=== PATIENT | female | born 1935 | race Caucasian/White ===

== ENCOUNTER 2017-06-08 16:42 | Inpatient (IN) | payer MEDICARE, OTHER ==
[2017-06-08 17:17] LABS: CHLORIDE,CL 96 mEq/L (98-106); SODIUM,NA 137 mEq/L (136-145)
[2017-06-08] MEDS ORDERED: Magnesium Hydroxide 400 MG/5 ML Susp 30 ML Cup PO PRN (17:38)
[2017-06-08] MEDS ORDERED: Acetaminophen 325 MG Tab PO PRN (17:38)
[2017-06-08] MEDS ORDERED: Ondansetron 4 MG/2 ML SDV IV PRN (17:38)
[2017-06-08] MEDS ORDERED: methylPREDNISolone Sodium Succinate 125 MG/2 ML SDV IVPUSH SCH (17:45)
[2017-06-08] MEDS ORDERED: Azithromycin 500 MG in Sodium Chloride 0.9% 250 ML IV SCH (18:00)
[2017-06-08] MEDS ORDERED: Iopamidol 755 Mg/ML 100 ML Bottle IVPUSH ONE ×2 (18:23→18:26)
[2017-06-08] MEDS ORDERED: cefTRIAXone 1 GM Vial IVPUSH SCH (19:00)
[2017-06-08] MEDS: Lactated Ringers 1,000 ML IV SCH (19:18)
[2017-06-08] MEDS: Enoxaparin 30 MG/0.3 ML Syringe SUBCUT SCH (19:19)
[2017-06-08] MEDS: Albuterol/Ipratropium 3.0-0.5 MG/3 ML Neb Soln NEB SCH (19:20)
[2017-06-08] MEDS: Cholecalciferol (Vitamin D3) 1,000 Unit Tab PO SCH (19:43)
[2017-06-08] MEDS: Simvastatin 10 MG Tab PO SCH (19:43)
[2017-06-08] MEDS: Calcium Carbonate 500 MG Tab.Chew PO SCH (19:43)
[2017-06-08] MEDS: Multivitamin Tab PO SCH (19:43)
[2017-06-08] MEDS: Aspirin 81 MG Tab.EC PO SCH (19:43)
[2017-06-09] MEDS: Levothyroxine 150 MCG Tab PO SCH (06:28)
[2017-06-09] MEDS: Albuterol/Ipratropium 3.0-0.5 MG/3 ML Neb Soln NEB SCH ×4 (07:31→20:03)
[2017-06-09] MEDS: methylPREDNISolone Sodium Succinate 125 MG/2 ML SDV IVPUSH SCH (08:02)
--- NOTE | 2017-06-09 08:57 | PCM.PN ---
- General Info Date of Service: 06/09/17 Admission Dx/Problem (Free Text): RLL Pneumonia Subjective Update: Patient was admitted to the hospital from the clinic yesterday for RLL Pneumonia. She had reported weakness and extreme fatigue for the past 2 weeks. She also had a nonproductive cough. CXR and CTA of chest showed RLL opacities. Her WBC at admission was 16.6. WBC has decreased and is normal today at 9.8. Her CRP is also elevated at 14.8. Patient reports she feels a little better today. Continues to have a cough and some weakness. She did have a low grade temperature yesterday evening, but has been afebrile through the night and this morning. She does report some chills and continued shortness of breath on exertion. Functional Status: Reports: Pain Controlled, Tolerating Diet, Ambulating, Urinating. Denies: New Symptoms - Review of Systems General: Reports: Weakness, Fatigue, Chills. Denies: Fever, Appetite HEENT: Reports: No Symptoms. Denies: Sinus Congestion Pulmonary: Reports: Shortness of Breath, Pleuritic Chest Pain, Cough. Denies: Sputum, Hemoptysis Cardiovascular: Reports: Dyspnea on Exertion. Denies: Chest Pain, Palpitations , Edema, Lightheadedness Gastrointestinal: Reports: No Symptoms Genitourinary: Reports: No Symptoms Neurological: Reports: No Symptoms Psychiatric: Reports: No Symptoms - Patient Data Vitals - Most Recent: Last Vital Signs Temp 97.7 F 06/09/17 07:15 Pulse 66 06/09/17 07:15 Resp 16 06/09/17 07:15 BP 125/53 L 06/09/17 07:15 Pulse Ox 94 L 06/09/17 07:15 Weight - Most Recent: 83 lb 9.6 oz Lab Results Last 24 Hours: Laboratory Results - last 24 hr 06/08/17 06/08/17 06/08/17 Range/Units 16:58 16:58 16:58 WBC 16.6 H (5.0-10.0) 10^3/uL RBC 3.87 L (4.00-5.50) 10^6/uL Hgb 11.8 L (12.0-16.0) g/dL Hct 35.8 L (37.0-47.0) % MCV 92.5 (82.0-94.0) fL MCH 30.5 (27.0-32.0) pg MCHC 33.0 (33.0-38.0) g/dL RDW Coeff of Gregor 12.2 (11.0-15.0) % Plt Count 401 H (150-400) 10^3/uL Neut % (Auto) 89.5 H (35-85) % Lymph % (Auto) 6.0 L (10-55) % [place] % (Auto) 4.2 (0-16) % Eos % (Auto) 0.2 (0-5) % Baso % (Auto) 0.1 (0-3) % Neut # (Auto) 14.81 H (1.80-7.00) 10^3/uL Lymph # (Auto) 0.99 L (1.00-4.80) 10^3/uL [place] # (Auto) 0.69 (0.00-0.80) 10^3/uL Eos # (Auto) 0.04 (0.00-0.45) 10^3/uL Baso # (Auto) 0.02 10^3/uL D-Dimer, Quantitative 0.88 H (0.00-0.50) Sodium 137 (136-145) mEq/L Potassium 3.7 (3.5-5.0) mEq/L Chloride 96 L (98-106) mEq/L Carbon Dioxide 32 (21-32) mmol/L BUN 11 (7-18) mg/dL Creatinine 0.9 (0.6-1.0) mg/dL Est Cr Clr Drug Dosing TNP Estimated GFR (MDRD) > 60 (>=60) mL/min Glucose 96 (75-99) mg/dL Calcium 8.9 (8.4-10.1) mg/dL Magnesium (1.8-2.4) mg/dL Total Bilirubin 0.5 (0.0-1.0) mg/dL AST 22 (15-37) U/L ALT 22 (12-78) U/L Alkaline Phosphatase 97 (46-116) U/L C-Reactive Protein 14.9 H (0.2-0.8) mg/dL Total Protein 7.7 (6.4-8.2) g/dL Albumin 2.7 L (3.4-5.0) g/dL TSH, Ultra Sensitive (0.36-5.60) uIU/mL 06/09/17 06/09/17 Range/Units 07:00 07:00 WBC 9.8 (5.0-10.0) 10^3/uL RBC 3.62 L (4.00-5.50) 10^6/uL Hgb 11.1 L (12.0-16.0) g/dL Hct 33.5 L (37.0-47.0) % MCV 92.5 (82.0-94.0) fL MCH 30.7 (27.0-32.0) pg MCHC 33.1 (33.0-38.0) g/dL RDW Coeff of Gregor 12.2 (11.0-15.0) % Plt Count 359 (150-400) 10^3/uL Neut % (Auto) 92.9 H (35-85) % Lymph % (Auto) 6.3 L (10-55) % [place] % (Auto) 0.8 (0-16) % Eos % (Auto) 0 (0-5) % Baso % (Auto) 0 (0-3) % Neut # (Auto) 9.10 H (1.80-7.00) 10^3/uL Lymph # (Auto) 0.62 L (1.00-4.80) 10^3/uL [place] # (Auto) 0.08 (0.00-0.80) 10^3/uL Eos # (Auto) 0.00 (0.00-0.45) 10^3/uL Baso # (Auto) 0.00 10^3/uL D-Dimer, Quantitative (0.00-0.50) Sodium (136-145) mEq/L Potassium (3.5-5.0) mEq/L Chloride (98-106) mEq/L Carbon Dioxide (21-32) mmol/L BUN (7-18) mg/dL Creatinine (0.6-1.0) mg/dL Est Cr Clr Drug Dosing Estimated GFR (MDRD) (>=60) mL/min Glucose (75-99) mg/dL Calcium (8.4-10.1) mg/dL Magnesium 2.2 (1.8-2.4) mg/dL Total Bilirubin (0.0-1.0) mg/dL AST (15-37) U/L ALT (12-78) U/L Alkaline Phosphatase (46-116) U/L C-Reactive Protein 14.8 H (0.2-0.8) mg/dL Total Protein (6.4-8.2) g/dL Albumin (3.4-5.0) g/dL TSH, Ultra Sensitive 3.47 (0.36-5.60) uIU/mL Med Orders - Current: Current Medications Acetaminophen (Tylenol) 650 mg PO Q4H PRN PRN Reason: Pain (Mild 1-3)/fever Last Admin: 06/08/17 19:20 Dose: 650 mg Albuterol/Ipratropium (Duoneb 3.0-0.5 Mg/3 Ml) 3 ml NEB QIDRT [facility] Last Admin: 06/09/17 07:31 Dose: 3 ml Aspirin (Halfprin) 81 mg PO BEDTIME [facility] Last Admin: 06/08/17 19:43 Dose: 81 mg Calcium Carbonate/Glycine (Tums) 500 mg PO BEDTIME [facility] Last Admin: 06/08/17 19:43 Dose: 500 mg Ceftriaxone Sodium (Rocephin) 1 gm IVPUSH Q24H [facility] Cholecalciferol (Vitamin D3) 2,000 units PO BEDTIME [facility] Last Admin: 06/08/17 19:43 Dose: 2,000 units Enoxaparin Sodium (Lovenox) 30 mg SUBCUT Q24H [facility] Last Admin: 06/08/17 19:19 Dose: 30 mg Lactated Ringer's (Ringers, Lactated) 1,000 mls @ 75 mls/hr IV ASDIRECTED [facility] Last Admin: 06/08/17 19:18 Dose: 75 mls/hr Azithromycin 500 mg/ Sodium (Chloride) 250 mls @ 250 mls/hr IV Q24H [facility] Levothyroxine Sodium (Levothyroxine) 75 mcg PO ACBREAKFAST [facility] Last Admin: 06/09/17 06:28 Dose: 75 mcg Magnesium Hydroxide (Milk Of Magnesia) 30 ml PO Q12H PRN PRN Reason: Constipation Methylprednisolone Sodium Succinate (Solu-Medrol) 62.5 mg IVPUSH Q24H [facility] Last Admin: 06/09/17 08:02 Dose: 62.5 mg Multivitamins/Minerals/Vitamin C (Tab-A-Jama) 1 tab PO BEDTIME [facility] Last Admin: 06/08/17 19:43 Dose: 1 tab Ondansetron HCl (Zofran) 4 mg IV Q6H PRN PRN Reason: Nausea/Vomiting Simvastatin (Zocor) 10 mg PO BEDTIME [facility] Last Admin: 06/08/17 19:43 Dose: 10 mg Temazepam (Restoril) 15 mg PO BEDTIME PRN PRN Reason: Sleep Discontinued Medications Ceftriaxone Sodium (Rocephin) 1 gm IVPUSH Q24H [facility] Last Admin: 06/08/17 19:18 Dose: 1 gm Azithromycin 500 mg/ Sodium (Chloride) 250 mls @ 250 mls/hr IV Q24H [facility] Last Admin: 06/08/17 19:19 Dose: 250 mls/hr Iopamidol (Isovue-370 (76%)) 100 ml IVPUSH ONETIME ONE Stop: 06/08/17 18:24 Last Admin: 06/08/17 18:52 Dose: 100 ml Iopamidol (Isovue-370 (76%)) 100 ml IVPUSH ONETIME ONE Stop: 06/08/17 18:27 Last Admin: 06/08/17 22:55 Dose: Not Given Methylprednisolone Sodium Succinate (Solu-Medrol) 62.5 mg IVPUSH Q24H [facility] Last Admin: 06/08/17 19:18 Dose: 62.5 mg - Exam General: Alert, Oriented Neck: Supple Lungs: Clear to Auscultation, Decreased Breath Sounds Cardiovascular: Regular Rate, Regular Rhythm Extremities: Normal Inspection, Normal Range of Motion, Non-Tender, No Pedal Edema, Normal Capillary Refill Neurological: No New Focal Deficit Psy/Mental Status: Alert, Normal Affect, Normal Mood - Problem List & Annotations (1) Pneumonia of lower lobe of lung SNOMED Code(s): 487827678 Code(s): J18.1 - LOBAR PNEUMONIA, UNSPECIFIED ORGANISM Status: Acute Current Visit: Yes Qualifiers: Pneumonia type: due to unspecified organism Laterality: right Qualified Code(s): J18.1 - Lobar pneumonia, unspecified organism - Problem List Review Problem List Initiated/Reviewed/Updated: Yes - My Orders Last 24 Hours: My Active Orders 06/12/17 06:00 C-REACTIVE PROTEIN [CHEM] DAILY CBC WITH AUTO DIFF [HEME] DAILY 06/13/17 06:00 C-REACTIVE PROTEIN [CHEM] DAILY CBC WITH AUTO DIFF [HEME] DAILY 06/08/17 17:38 Patient Status [ADT] Routine Oxygen Therapy [RC] .PRN Up With Assistance [RC] .PRN Vital Signs [RC] 0000,0400,0800,1200,1599,1999 Acetaminophen [Tylenol] 650 mg PO Q4H PRN Magnesium Hydroxide [Milk of Magnesia] 30 ml PO Q12H PRN Ondansetron [Zofran] 4 mg IV Q6H PRN Temazepam [Restoril] 15 mg PO BEDTIME PRN Resuscitation Status Routine 06/08/17 17:39 Cardiac Monitoring [RC] 08,199906/08/17 17:41 RT Aerosol Therapy [RC] 0800,1200,1599,199906/08/17 17:45 Lactated Ringers [Ringers, Lactated] 1,000 ml IV ASDIRECTED 06/08/17 17:46 CULTURE SPUTUM + SMEAR [RM] Routine 06/08/17 17:54 CTA Chest W WO Contrast [Ang Chest] [CT] Stat 06/08/17 20:00 Albuterol/Ipratropium [DuoNeb 3.0-0.5 MG/3 ML] 3 ml NEB QIDRT Aspirin [Halfprin] 81 mg PO BEDTIME Calcium Carbonate [Tums] 500 mg PO BEDTIME Cholecalciferol (Vitamin D3) [Vitamin D3] 2,000 units PO BEDTIME Enoxaparin [Lovenox] 30 mg SUBCUT Q24H Multivitamins [Tab-A-Jama] 1 tab PO BEDTIME Simvastatin [Zocor] 10 mg PO BEDTIME 06/08/17 Dinner Regular Diet [DIET] 06/09/17 07:00 Levothyroxine 75 mcg PO ACBREAKFAST 06/09/17 08:00 methylPREDNISolone Sod Succ [Solu-MEDROL] 62.5 mg IVPUSH Q24H 06/09/17 20:00 Azithromycin [Zithromax] 500 mg Sodium Chloride 0.9% [Normal Saline] 250 ml IV Q24H cefTRIAXone [Rocephin] 1 gm IVPUSH Q24H 06/10/17 06:00 C-REACTIVE PROTEIN [CHEM] DAILY CBC WITH AUTO DIFF [HEME] DAILY 06/11/17 06:00 C-REACTIVE PROTEIN [CHEM] DAILY CBC WITH AUTO DIFF [HEME] DAILY - Plan Plan:: Continue IV antibiotics, steroids, and nebulizer treatments. WBC improving. Daily labs.
[2017-06-09] MEDS: Lactated Ringers 1,000 ML IV SCH (09:39)
[2017-06-09] MEDS: Calcium Carbonate 500 MG Tab.Chew PO SCH (20:03)
[2017-06-09] MEDS: cefTRIAXone 1 GM Vial IVPUSH SCH (20:03)
[2017-06-09] MEDS: Enoxaparin 30 MG/0.3 ML Syringe SUBCUT SCH (20:03)
[2017-06-09] MEDS: Aspirin 81 MG Tab.EC PO SCH (20:04)
[2017-06-09] MEDS: Cholecalciferol (Vitamin D3) 1,000 Unit Tab PO SCH (20:04)
[2017-06-09] MEDS: Multivitamin Tab PO SCH (20:04)
[2017-06-09] MEDS: Simvastatin 10 MG Tab PO SCH (20:04)
[2017-06-09] MEDS: Azithromycin 500 MG in Sodium Chloride 0.9% 250 ML IV SCH (20:06)
[2017-06-10] MEDS: Lactated Ringers 1,000 ML IV SCH ×2 (00:02→13:55)
[2017-06-10] MEDS: Temazepam 15 MG Cap PO PRN ×2 (01:34→19:41)
[2017-06-10] MEDS: Levothyroxine 150 MCG Tab PO SCH (06:15)
[2017-06-10] MEDS: methylPREDNISolone Sodium Succinate 125 MG/2 ML SDV IVPUSH SCH (07:45)
[2017-06-10] MEDS: Albuterol/Ipratropium 3.0-0.5 MG/3 ML Neb Soln NEB SCH ×4 (07:45→19:40)
--- NOTE | 2017-06-10 13:32 | PCM.PN ---
- General Info Date of Service: 06/10/17 Admission Dx/Problem (Free Text): RLL Pneumonia Subjective Update: Cleo reports she is feeling better today. She does report a continued nonproductive cough and fatigue, but reports they are both improving. Functional Status: Reports: Pain Controlled, Tolerating Diet, Ambulating, Urinating. Denies: New Symptoms - Review of Systems General: Reports: Fatigue. Denies: Fever, Weakness HEENT: Reports: No Symptoms Pulmonary: Reports: Shortness of Breath, Cough. Denies: Pleuritic Chest Pain, Sputum, Hemoptysis, Wheezing Cardiovascular: Reports: Dyspnea on Exertion. Denies: Chest Pain, Lightheadedness Gastrointestinal: Reports: No Symptoms Genitourinary: Reports: No Symptoms Neurological: Reports: No Symptoms Psychiatric: Reports: No Symptoms - Patient Data Vitals - Most Recent: Last Vital Signs Temp 98.3 F 06/10/17 07:54 Pulse 69 06/10/17 07:54 Resp 20 06/10/17 07:54 BP 128/69 06/10/17 07:54 Pulse Ox 95 06/10/17 07:54 Weight - Most Recent: 83 lb 9.6 oz I&O - Last 24 Hours: Intake & Output 06/09/17 06/10/17 06/10/17 22:59 06:59 14:59 Intake Total 1000 400 Balance 1000 400 Lab Results Last 24 Hours: Laboratory Results - last 24 hr 06/10/17 06/10/17 Range/Units 06:50 06:50 WBC 12.4 H (5.0-10.0) 10^3/uL RBC 3.18 L (4.00-5.50) 10^6/uL Hgb 9.7 L (12.0-16.0) g/dL Hct 30.1 L (37.0-47.0) % MCV 94.7 H (82.0-94.0) fL MCH 30.5 (27.0-32.0) pg MCHC 32.2 L (33.0-38.0) g/dL RDW Coeff of Gregor 12.2 (11.0-15.0) % Plt Count 316 (150-400) 10^3/uL Neut % (Auto) 88.3 H (35-85) % Lymph % (Auto) 6.7 L (10-55) % [place] % (Auto) 4.9 (0-16) % Eos % (Auto) 0 (0-5) % Baso % (Auto) 0.1 (0-3) % Neut # (Auto) 10.97 H (1.80-7.00) 10^3/uL Lymph # (Auto) 0.83 L (1.00-4.80) 10^3/uL [place] # (Auto) 0.61 (0.00-0.80) 10^3/uL Eos # (Auto) 0.00 (0.00-0.45) 10^3/uL Baso # (Auto) 0.01 10^3/uL C-Reactive Protein 7.5 H (0.2-0.8) mg/dL Med Orders - Current: Current Medications Acetaminophen (Tylenol) 650 mg PO Q4H PRN PRN Reason: Pain (Mild 1-3)/fever Last Admin: 06/08/17 19:20 Dose: 650 mg Albuterol/Ipratropium (Duoneb 3.0-0.5 Mg/3 Ml) 3 ml NEB QIDRT [facility] Last Admin: 06/10/17 12:27 Dose: 3 ml Aspirin (Halfprin) 81 mg PO BEDTIME [facility] Last Admin: 06/09/17 20:04 Dose: 81 mg Calcium Carbonate/Glycine (Tums) 500 mg PO BEDTIME [facility] Last Admin: 06/09/17 20:03 Dose: 500 mg Ceftriaxone Sodium (Rocephin) 1 gm IVPUSH Q24H [facility] Last Admin: 06/09/17 20:03 Dose: 1 gm Cholecalciferol (Vitamin D3) 2,000 units PO BEDTIME [facility] Last Admin: 06/09/17 20:04 Dose: 2,000 units Enoxaparin Sodium (Lovenox) 30 mg SUBCUT Q24H [facility] Last Admin: 06/09/17 20:03 Dose: 30 mg Lactated Ringer's (Ringers, Lactated) 1,000 mls @ 75 mls/hr IV ASDIRECTED [facility] Last Admin: 06/10/17 00:02 Dose: 75 mls/hr Azithromycin 500 mg/ Sodium (Chloride) 250 mls @ 250 mls/hr IV Q24H [facility] Last Admin: 06/09/17 20:06 Dose: 250 mls/hr Levothyroxine Sodium (Levothyroxine) 75 mcg PO ACBREAKFAST [facility] Last Admin: 06/10/17 06:15 Dose: 75 mcg Magnesium Hydroxide (Milk Of Magnesia) 30 ml PO Q12H PRN PRN Reason: Constipation Last Admin: 06/09/17 11:17 Dose: 30 ml Methylprednisolone Sodium Succinate (Solu-Medrol) 62.5 mg IVPUSH Q24H [facility] Last Admin: 06/10/17 07:45 Dose: 62.5 mg Multivitamins/Minerals/Vitamin C (Tab-A-Jama) 1 tab PO BEDTIME [facility] Last Admin: 06/09/17 20:04 Dose: 1 tab Ondansetron HCl (Zofran) 4 mg IV Q6H PRN PRN Reason: Nausea/Vomiting Simvastatin (Zocor) 10 mg PO BEDTIME [facility] Last Admin: 06/09/17 20:04 Dose: 10 mg Temazepam (Restoril) 15 mg PO BEDTIME PRN PRN Reason: Sleep Last Admin: 06/10/17 01:34 Dose: 15 mg Discontinued Medications Ceftriaxone Sodium (Rocephin) 1 gm IVPUSH Q24H [facility] Last Admin: 06/08/17 19:18 Dose: 1 gm Azithromycin 500 mg/ Sodium (Chloride) 250 mls @ 250 mls/hr IV Q24H [facility] Last Admin: 06/08/17 19:19 Dose: 250 mls/hr Iopamidol (Isovue-370 (76%)) 100 ml IVPUSH ONETIME ONE Stop: 06/08/17 18:24 Last Admin: 06/08/17 18:52 Dose: 100 ml Iopamidol (Isovue-370 (76%)) 100 ml IVPUSH ONETIME ONE Stop: 06/08/17 18:27 Last Admin: 06/08/17 22:55 Dose: Not Given Methylprednisolone Sodium Succinate (Solu-Medrol) 62.5 mg IVPUSH Q24H [facility] Last Admin: 06/08/17 19:18 Dose: 62.5 mg - Exam Quality Assessment: No: Supplemental Oxygen General: Alert, Oriented Neck: Supple Lungs: Clear to Auscultation, Normal Respiratory Effort Cardiovascular: Regular Rate, Regular Rhythm GI/Abdominal Exam: Normal Bowel Sounds, Soft, Non-Tender, No Organomegaly, No Distention, No Abnormal Bruit, No Mass, Pelvis Stable Extremities: Normal Inspection, Normal Range of Motion, Non-Tender, No Pedal Edema, Normal Capillary Refill Neurological: No New Focal Deficit Psy/Mental Status: Alert, Normal Affect, Normal Mood - Problem List & Annotations (1) Pneumonia of lower lobe of lung SNOMED Code(s): 692606308 Code(s): J18.1 - LOBAR PNEUMONIA, UNSPECIFIED ORGANISM Status: Acute Qualifiers: Pneumonia type: due to unspecified organism Laterality: right Qualified Code(s): J18.1 - Lobar pneumonia, unspecified organism - Problem List Review Problem List Initiated/Reviewed/Updated: Yes - My Orders Last 24 Hours: My Active Orders 06/12/17 06:00 C-REACTIVE PROTEIN [CHEM] DAILY CBC WITH AUTO DIFF [HEME] DAILY 06/13/17 06:00 C-REACTIVE PROTEIN [CHEM] DAILY CBC WITH AUTO DIFF [HEME] DAILY 06/09/17 20:00 Azithromycin [Zithromax] 500 mg Sodium Chloride 0.9% [Normal Saline] 250 ml IV Q24H cefTRIAXone [Rocephin] 1 gm IVPUSH Q24H 06/11/17 06:00 C-REACTIVE PROTEIN [CHEM] DAILY CBC WITH AUTO DIFF [HEME] DAILY - Plan Plan:: Continue IV antibiotics, steroids, and nebulizer treatments. WBC & CRP improving. Daily labs. I suspect patient will be ready for discharge tomorrow.
[2017-06-10] MEDS: Calcium Carbonate 500 MG Tab.Chew PO SCH (19:38)
[2017-06-10] MEDS: Aspirin 81 MG Tab.EC PO SCH (19:39)
[2017-06-10] MEDS: Cholecalciferol (Vitamin D3) 1,000 Unit Tab PO SCH (19:39)
[2017-06-10] MEDS: Multivitamin Tab PO SCH (19:39)
[2017-06-10] MEDS: Simvastatin 10 MG Tab PO SCH (19:39)
[2017-06-10] MEDS: cefTRIAXone 1 GM Vial IVPUSH SCH (19:40)
[2017-06-10] MEDS: Enoxaparin 30 MG/0.3 ML Syringe SUBCUT SCH (19:42)
[2017-06-10] MEDS: Azithromycin 500 MG in Sodium Chloride 0.9% 250 ML IV SCH (19:51)
[2017-06-11] MEDS: Lactated Ringers 1,000 ML IV SCH (03:15)
[2017-06-11] MEDS: Levothyroxine 150 MCG Tab PO SCH (06:22)
[2017-06-11] MEDS: Albuterol/Ipratropium 3.0-0.5 MG/3 ML Neb Soln NEB SCH ×2 (07:40→11:43)
[2017-06-11] MEDS: methylPREDNISolone Sodium Succinate 125 MG/2 ML SDV IVPUSH SCH (07:40)
[2017-06-11 12:03] VITALS: BP 153/77
[2017-06-11] MEDS ORDERED: Levofloxacin 500 MG Tab PO ONE ×3 (13:06→13:15)
--- NOTE | 2017-06-15 11:55 | PCM.DCSUM1 ---
Discharge Summary - Hospital Course HPI Initial Comments: Cleo is a 81 year old female who was admitted to the hospital on 2016 from the clinic for RLL pneumonia. She reported cough and weakness for about 2 weeks prior to presentation to the clinic. Throughout hospital stay, patients strength improved. At time of discharge, she had continued weakness and fatigue but reported she was feeling much better. She had continued productive cough. CXR and CTA chest showed RLL pneumonia. It was suspected that this was asiration pneumonia. She was treated with azithromycin and rocephin, Duonebs, and steroids, and improved. Her WBC and CRP trended down throughout hospital stay. WBC on admission was 16.6 and 7.0 upon discharge. Her CRP at admission was 14.9 and 4.2 upon discharge. She will be discharged home on 5 additional days of Levaquin. She will follow up in clinic on Monday2017. Patient agreeable to plan. - Discharge Data Discharge Date: 06/11/17 Discharge Disposition: Home, Self-Care 01 Condition: Good - Discharge Diagnosis/Problem(s) (1) Pneumonia of lower lobe of lung SNOMED Code(s): 083327806 ICD Code: J18.1 - LOBAR PNEUMONIA, UNSPECIFIED ORGANISM Status: Acute Qualifiers: Pneumonia type: due to unspecified organism Laterality: right Qualified Code(s): J18.1 - Lobar pneumonia, unspecified organism (2) Generalized weakness SNOMED Code(s): 92701482 ICD Code: R53.1 - WEAKNESS Status: Acute - Patient Instructions Diet: Usual Diet as Tolerated Activity: As Tolerated Notify Provider of: Fever, Increased Pain, Swelling and Redness, Drainage, Nausea and/or Vomiting - Discharge Plan Prescriptions/Med Rec: Levofloxacin [Levaquin] 250 mg PO Q24H 5 Days #6 tablet Home Medications: Home Meds Aspirin [Halfprin] 81 mg PO DAILY 03/06/15 [History] Calcium Carb/Magnesium Hydrox [Rolaids Chewable Tablet] 1 tab PO DAILY 03/06/15 [History] Cholecalciferol (Vitamin D3) [Vitamin D3] 2,000 unit PO DAILY 03/06/15 [History] Levothyroxine Sodium [Synthroid] 75 mcg PO DAILY 03/06/15 [History] Multivitamin [Daily Multiple Vitamin] 1 tab PO DAILY 03/06/15 [History] Simvastatin 10 mg PO DAILY 03/06/15 [History] Levofloxacin [Levaquin] 250 mg PO Q24H 5 Days #6 tablet 06/11/17 [Rx] Patient Handouts: Aspiration Pneumonia, Community-Acquired Pneumonia, Adult Referrals: Pretty Boothe, MAINTENANCE SPECIALIST [Primary Care Provider] - - Discharge Summary/Plan Comment Discharge Summary/Plan Comment: Patient will be discharged home on 5 days of Levaquin. Push fluids Rest as much as possible Do not return to work until feeling better. Note provided to patient to refrain from work until 06/14/2017. Follow up in clinic on Monday06/13/2017 for recheck - General Info Date of Service: 06/11/17 Admission Dx/Problem (Free Text: RLL Pneumonia Generalized weakness Subjective Update: Cleo reports she is feeling better today. She does report a continued nonproductive cough and fatigue, but reports they are both improving. She feels like she is ready to discharge home. She reports "she can lay in her bed at home just as easy." She has been afebrile. She has been up ambulating without difficulty. Functional Status: Reports: Pain Controlled, Tolerating Diet, Ambulating, Urinating. Denies: New Symptoms - Review of Systems General: Reports: Weakness, Fatigue. Denies: Fever, Chills, Night Sweats HEENT: Reports: No Symptoms. Denies: Sinus Congestion, Sore Throat, Rhinitis Pulmonary: Reports: Shortness of Breath, Cough, Sputum. Denies: Pleuritic Chest Pain, Hemoptysis, Wheezing Cardiovascular: Reports: Dyspnea on Exertion. Denies: Chest Pain, Palpitations , Edema, Lightheadedness Gastrointestinal: Reports: Decreased Appetite. Denies: Abdominal Pain, Diarrhea , Nausea, Vomiting Genitourinary: Reports: No Symptoms Musculoskeletal: Reports: No Symptoms Skin: Reports: No Symptoms Neurological: Reports: Weakness. Denies: Confusion, Headache Psychiatric: Reports: No Symptoms - Patient Data Vitals - Most Recent: Last Vital Signs Temp 98.2 F 06/11/17 08:00 Pulse 82 06/11/17 08:00 Resp 19 06/11/17 08:00 BP 153/77 H 06/11/17 08:00 Pulse Ox 93 L 06/11/17 08:00 Weight - Most Recent: 83 lb 9.6 oz Med Orders - Current: Current Medications Discontinued Medications Acetaminophen (Tylenol) 650 mg PO Q4H PRN PRN Reason: Pain (Mild 1-3)/fever Last Admin: 06/08/17 19:20 Dose: 650 mg Albuterol/Ipratropium (Duoneb 3.0-0.5 Mg/3 Ml) 3 ml NEB QIDRT [facility] Last Admin: 06/11/17 11:43 Dose: 3 ml Aspirin (Halfprin) 81 mg PO BEDTIME [facility] Last Admin: 06/10/17 19:39 Dose: 81 mg Calcium Carbonate/Glycine (Tums) 500 mg PO BEDTIME [facility] Last Admin: 06/10/17 19:38 Dose: 500 mg Ceftriaxone Sodium (Rocephin) 1 gm IVPUSH Q24H [facility] Last Admin: 06/08/17 19:18 Dose: 1 gm Ceftriaxone Sodium (Rocephin) 1 gm IVPUSH Q24H [facility] Last Admin: 06/10/17 19:40 Dose: 1 gm Cholecalciferol (Vitamin D3) 2,000 units PO BEDTIME [facility] Last Admin: 06/10/17 19:39 Dose: 2,000 units Enoxaparin Sodium (Lovenox) 30 mg SUBCUT Q24H [facility] Last Admin: 06/10/17 19:42 Dose: 30 mg Azithromycin 500 mg/ Sodium (Chloride) 250 mls @ 250 mls/hr IV Q24H [facility] Last Admin: 06/08/17 19:19 Dose: 250 mls/hr Lactated Ringer's (Ringers, Lactated) 1,000 mls @ 75 mls/hr IV ASDIRECTED [facility] Last Admin: 06/11/17 03:15 Dose: 75 mls/hr Azithromycin 500 mg/ Sodium (Chloride) 250 mls @ 250 mls/hr IV Q24H [facility] Last Admin: 06/10/17 19:51 Dose: 250 mls/hr Iopamidol (Isovue-370 (76%)) 100 ml IVPUSH ONETIME ONE Stop: 06/08/17 18:24 Last Admin: 06/08/17 18:52 Dose: 100 ml Iopamidol (Isovue-370 (76%)) 100 ml IVPUSH ONETIME ONE Stop: 06/08/17 18:27 Last Admin: 06/08/17 22:55 Dose: Not Given Levofloxacin (Levaquin) 250 mg PO ONETIME ONE Stop: 06/11/17 13:16 Last Admin: 06/11/17 13:44 Dose: 250 mg Levofloxacin (Levaquin) 500 mg PO ONETIME ONE Stop: 06/11/17 13:07 Last Admin: 06/11/17 13:45 Dose: Not Given Levofloxacin (Levaquin) 500 mg PO ONETIME ONE Stop: 06/11/17 13:15 Last Admin: 06/11/17 13:44 Dose: 500 mg Levothyroxine Sodium (Levothyroxine) 75 mcg PO ACBREAKFAST [facility] Last Admin: 06/11/17 06:22 Dose: 75 mcg Magnesium Hydroxide (Milk Of Magnesia) 30 ml PO Q12H PRN PRN Reason: Constipation Last Admin: 06/09/17 11:17 Dose: 30 ml Methylprednisolone Sodium Succinate (Solu-Medrol) 62.5 mg IVPUSH Q24H [facility] Last Admin: 06/08/17 19:18 Dose: 62.5 mg Methylprednisolone Sodium Succinate (Solu-Medrol) 62.5 mg IVPUSH Q24H [facility] Last Admin: 06/11/17 07:40 Dose: 62.5 mg Multivitamins/Minerals/Vitamin C (Tab-A-Jaam) 1 tab PO BEDTIME [facility] Last Admin: 06/10/17 19:39 Dose: 1 tab Ondansetron HCl (Zofran) 4 mg IV Q6H PRN PRN Reason: Nausea/Vomiting Simvastatin (Zocor) 10 mg PO BEDTIME [facility] Last Admin: 06/10/17 19:39 Dose: 10 mg Temazepam (Restoril) 15 mg PO BEDTIME PRN PRN Reason: Sleep Last Admin: 06/10/17 19:41 Dose: 15 mg - Exam Quality Assessment: Denies: Supplemental Oxygen General: Reports: Alert, Oriented, No Acute Distress Neck: Reports: Supple Lungs: Reports: Clear to Auscultation, Normal Respiratory Effort, Decreased Breath Sounds (RLL) Cardiovascular: Reports: Regular Rate, Regular Rhythm GI/Abdominal Exam: Normal Bowel Sounds, Soft, Non-Tender, No Organomegaly, No Distention, No Abnormal Bruit, No Mass, Pelvis Stable Back Exam: Reports: Normal Inspection, Full Range of Motion Extremities: Normal Inspection, Normal Range of Motion, Non-Tender, No Pedal Edema, Normal Capillary Refill Skin: Reports: Warm, Dry, Intact Neurological: Reports: No New Focal Deficit Psy/Mental Status: Reports: Alert, Normal Affect, Normal Mood *Q Meaningful Use (DIS) - VTE *Q VTE Criteria *Q: - Stroke *Q Stroke Criteria *Q: - AMI *Q AMI Criteria *Q:
== END 2017-06-11 15:15 | disposition home or self-care (01) | DRG 194 ==
LOC: CC.LAB 16:42 → CC.MS 16:42 → UNDOADMIN 17:24 → CC.MS 17:24
PROVIDERS: ADMIT Nurse Practitioner Family; ATTEND General Practice
DX: J18.9 Pneumonia, unspecified organism (principal); C85.10 Unspecified B-cell lymphoma, unspecified site; R53.1 Weakness; Z88.8 Allergy status to other drugs, medicaments and biological substances; Z79.899 Other long term (current) drug therapy; F17.210 Nicotine dependence, cigarettes, uncomplicated
CPT/HCPCS: 36415; 71020; 71275; 80053; 83735; 84443; 85025; 85379; 86140; 93005; 94640; A9270-GY; J0456; J0696; J1650; J2930; J7050; J7120; Q9967

== ENCOUNTER 2018-08-22 21:15 | Inpatient (IN) | payer MEDICARE, OTHER ==
[~2018-08-22 21:15] MED LIST: Aspirin 81 MG Tab.EC PO SCH
[2018-08-22] MEDS ORDERED: Sodium Chloride 0.9% 10 ML Syringe FLUSH PRN (21:25)
[2018-08-22] MEDS ORDERED: Acetaminophen 325 MG Tab PO PRN (21:25)
[2018-08-22] MEDS ORDERED: Levalbuterol HCl 1.25 MG/3 ML Neb NEB PRN (21:29)
[2018-08-22] MEDS: cefTRIAXone 1 GM Vial IVPUSH SCH (22:16)
[2018-08-22] MEDS: Azithromycin 500 MG in Sodium Chloride 0.9% 250 ML IV SCH (22:19)
[2018-08-22] MEDS: Enoxaparin 40 MG/0.4 ML Syringe SUBCUT SCH (22:22)
[2018-08-22] MEDS: Ibuprofen 200 MG Tab PO PRN (23:09)
[2018-08-23] MEDS: Levothyroxine 150 MCG Tab PO SCH (06:09)
[2018-08-23] MEDS: Aspirin 81 MG Tab.EC PO SCH ×2 (07:43→08:10)
[2018-08-23] MEDS: Simvastatin 10 MG Tab PO SCH ×2 (07:44→08:10)
[2018-08-23 08:14] LABS: CHLORIDE,CL 105 mEq/L (98-106); SODIUM,NA 140 mEq/L (136-145)
[2018-08-23] MEDS ORDERED: Docusate Sodium 100 MG Cap PO PRN (08:36)
--- NOTE | 2018-08-23 11:20 | PN ---
DATE: 08/23/2018 S: Cleo is an 82-year-old female, who was admitted to the hospital yesterday with a right lower lobe pneumonia. She was started on IV azithromycin and Rocephin. She states this morning she was feeling a lot better, denies any shortness of breath. She does feel that she has a little bit of constipation, this is kind of normal for her. She is questioning if she can get a stool softener. O: VITAL SIGNS: Blood pressure 127/54, pulse 66, respiratory rate 18, and O2 is 95%. She did have a fever yesterday evening up to 100.4. She currently is afebrile at 98.7. GENERAL: Pleasant, cooperative female. Overall, she is feeling well today. HEENT: Grossly unremarkable. LUNGS: Clear to auscultation. I really did not hear any adventitious sounds. CARDIAC: Regular rate and rhythm. No murmurs, gallops, or rubs. No pedal edema is noted. ABDOMEN: Soft. Bowel sounds are present. Normoactive. No organomegaly. No guarding or rigidity. ASSESSMENT: RIGHT LOWER LOBE PNEUMONIA. P: We will continue IV antibiotics today. I did discuss her possible discharge tomorrow with oral antibiotics. She was in complete agreement with this. We will give her a stool softener today. We will repeat the laboratory work in the morning along with a chest x-ray to see if pneumonia is improving. NAEL/HERNESTO /[id number]
[2018-08-23] MEDS: Ibuprofen 200 MG Tab PO PRN (19:50)
[2018-08-23] MEDS ORDERED: Aspirin 81 MG Tab.EC PO SCH (20:00)
[2018-08-23] MEDS ORDERED: Simvastatin 10 MG Tab PO SCH (20:00)
[2018-08-23] MEDS: cefTRIAXone 1 GM Vial IVPUSH SCH (20:38)
[2018-08-23] MEDS: Enoxaparin 40 MG/0.4 ML Syringe SUBCUT SCH (20:38)
[2018-08-23] MEDS: Azithromycin 500 MG in Sodium Chloride 0.9% 250 ML IV SCH (20:41)
[2018-08-24] MEDS: Levothyroxine 150 MCG Tab PO SCH (06:32)
[2018-08-24 08:00] LABS: CHLORIDE,CL 103 mEq/L (98-106); SODIUM,NA 142 mEq/L (136-145)
[2018-08-24 09:35] VITALS: BP 146/72
--- NOTE | 2018-08-24 21:47 | PCM.DCSUM1 ---
Discharge Summary - Hospital Course Free Text/Narrative:: Patient presented to clinic with a 1 week history of increased shortness of breath, fatigue and cough. Had questioned if may have influenza. She had low grade fevers, 99.2 in clinic. Oxygen sat was 89%. WBC was normal at 8.2. Troponin negative. Influenza negative. Due to mild elevation of d-dimer, CTA of chest was done which showed a Right Lower Pneumonia. Admitted and started on IV Zithromax and Rocephin. Xopenex. Oxygen as needed. Diagnosis: Stroke: No Modified Hopkins Scale: No Symptoms at All Modified Hopkins Scale Score: 0 - Discharge Data Discharge Date: 08/24/18 Discharge Disposition: Home, Self-Care 01 Condition: Good - Patient Summary/Data Complications: none Hospital Course: Patient is feeling better. Now afebrile. Oxygen sats greater than 90% on room air. Lung sounds clear but diminished. Labs have remained stable, WBC at 5.8 today. CRP did increase to 6.2, now 5.3 today. Is ambulating and tolerating well. Appetite is good. Discharge home on Ceftin BID. Follow up in one week for recheck. - Patient Instructions Diet: Usual Diet as Tolerated Activity: As Tolerated - Discharge Plan *PRESCRIPTION DRUG MONITORING PROGRAM REVIEWED*: No *COPY OF PRESCRIPTION DRUG MONITORING REPORT IN PATIENT AKANKSHA: No Prescriptions/Med Rec: Cefuroxime Axetil [Ceftin] 250 mg PO BID #20 tablet Home Medications: Home Meds Aspirin [Halfprin] 81 mg PO DAILY 03/06/15 [History] Calcium Carb/Magnesium Hydrox [Rolaids Chewable Tablet] 1 tab PO DAILY PRN 03/06 [History] Cholecalciferol (Vitamin D3) [Vitamin D3] 2,000 unit PO 1200 03/06/15 [History] Levothyroxine Sodium [Synthroid] 75 mcg PO DAILY 03/06/15 [History] Multivitamin [Daily Multiple Vitamin] 1 tab PO DAILY 03/06/15 [History] Simvastatin 10 mg PO DAILY 03/06/15 [History] Calcium Carbonate [Calcium] 500 mg PO DAILY 08/22/18 [History] Cefuroxime Axetil [Ceftin] 250 mg PO BID #20 tablet 08/24/18 [Rx] Patient Handouts: Community-Acquired Pneumonia, Adult Referrals: Trish Reeves PA [ED Midlevel Provider] - (Follow up with Emilia in one week) - Discharge Summary/Plan Comment DC Time >30 min.: No - General Info Date of Service: 08/24/18 Admission Dx/Problem (Free Text: Pneumonia of Functional Status: Reports: Pain Controlled, Tolerating Diet, Ambulating - Review of Systems General: Reports: Weakness, Fatigue. Denies: Fever HEENT: Reports: Rhinitis Pulmonary: Reports: Cough. Denies: Shortness of Breath, Sputum Cardiovascular: Denies: Chest Pain, Edema, Lightheadedness Gastrointestinal: Denies: Abdominal Pain, Nausea, Vomiting Genitourinary: Reports: No Symptoms Musculoskeletal: Reports: No Symptoms Skin: Reports: No Symptoms Neurological: Reports: No Symptoms - Patient Data Vitals - Most Recent: Last Vital Signs Temp 98 F 08/24/18 08:00 Pulse 66 08/24/18 08:00 Resp 16 08/24/18 08:00 BP 146/72 H 08/24/18 08:00 Pulse Ox 96 08/24/18 08:00 Weight - Most Recent: 84 lb 6.4 oz Lab Results - Last 24 hrs: Laboratory Results - last 24 hr 08/24/18 08/24/18 Range/Units 05:11 07:20 WBC 5.8 (5.0-10.0) 10^3/uL RBC 3.84 L (4.00-5.50) 10^6/uL Hgb 11.3 L (12.0-16.0) g/dL Hct 35.0 L (37.0-47.0) % MCV 91.1 (82.0-94.0) fL MCH 29.4 (27.0-32.0) pg MCHC 32.3 L (33.0-38.0) g/dL RDW Coeff of Gregor 13.7 (11.0-15.0) % Plt Count 213 (150-400) 10^3/uL Neut % (Auto) 77.0 (35-85) % Lymph % (Auto) 14.6 (10-55) % Dillon % (Auto) 6.7 (0-16) % Eos % (Auto) 1.5 (0-5) % Baso % (Auto) 0.2 (0-3) % Neut # (Auto) 4.49 (1.80-7.00) 10^3/uL Lymph # (Auto) 0.85 L (1.00-4.80) 10^3/uL Dillon # (Auto) 0.39 (0.00-0.80) 10^3/uL Eos # (Auto) 0.09 (0.00-0.45) 10^3/uL Baso # (Auto) 0.01 10^3/uL Sodium 142 (136-145) mEq/L Potassium 4.2 (3.5-5.0) mEq/L Chloride 103 (98-106) mEq/L Carbon Dioxide 31 (21-32) mmol/L BUN 14 (7-18) mg/dL Creatinine 0.7 (0.6-1.0) mg/dL Est Cr Clr Drug Dosing 38.74 mL/min Estimated GFR (MDRD) > 60 (>=60) mL/min Glucose 98 (75-99) mg/dL Calcium 8.4 (8.4-10.1) mg/dL C-Reactive Protein 5.3 H (0.2-0.8) mg/dL Med Orders - Current: Current Medications Discontinued Medications Acetaminophen (Tylenol) 650 mg PO Q4H PRN PRN Reason: Pain (Mild 1-3)/fever Aspirin (Halfprin) 81 mg PO DAILY [facility] Last Admin: 08/23/18 08:10 Dose: Not Given Aspirin (Halfprin) 81 mg PO DAILY@1999 [facility] Last Admin: 08/23/18 08:11 Dose: Not Given Aspirin (Halfprin) 81 mg PO DAILY@1999 [facility] Last Admin: 08/23/18 19:44 Dose: 81 mg Ceftriaxone Sodium (Rocephin) 1 gm IVPUSH Q24H [facility] Last Admin: 08/23/18 20:38 Dose: 1 gm Docusate Sodium (Colace) 100 mg PO BID PRN PRN Reason: Constipation Enoxaparin Sodium (Lovenox) 40 mg SUBCUT Q24H [facility] Last Admin: 08/23/18 20:38 Dose: 40 mg Azithromycin 500 mg/ Sodium (Chloride) 250 mls @ 250 mls/hr IV Q24H [facility] Last Admin: 08/23/18 20:41 Dose: 250 mls/hr Ibuprofen (Motrin) 400 mg PO Q6H PRN PRN Reason: Pain (mild 1-3) Last Admin: 08/23/18 19:50 Dose: 400 mg Levalbuterol HCl (Xopenex) 1.25 mg NEB Q4H PRN PRN Reason: Shortness of Breath Levothyroxine Sodium (Levothyroxine) 75 mcg PO ACBRK [facility] Last Admin: 08/24/18 06:32 Dose: 75 mcg Simvastatin (Zocor) 10 mg PO DAILY [facility] Last Admin: 08/23/18 08:10 Dose: Not Given Simvastatin (Zocor) 10 mg PO DAILY@1999 [facility] Last Admin: 08/23/18 19:44 Dose: 10 mg Sodium Chloride (Saline Flush) 10 ml FLUSH ASDIRECTED PRN PRN Reason: Keep Vein Open - Exam General: Reports: Alert, Oriented HEENT: Reports: Mucous Membr. Moist/[place]ck: Reports: Supple Lungs: Reports: Clear to Auscultation, Normal Respiratory Effort Cardiovascular: Reports: Regular Rate, Regular Rhythm GI/Abdominal Exam: Normal Bowel Sounds, Soft, Non-Tender Extremities: Normal Inspection, No Pedal Edema Skin: Reports: Warm, Dry Neurological: Reports: No New Focal Deficit
== END 2018-08-24 10:45 | disposition home or self-care (01) | DRG 195 ==
LOC: CC.MS 21:15 → UNDOADMIN 21:15 → CC.MS 21:25 → UNDODISIN 08-24 10:45
PROVIDERS: ADMIT Physician Assistant Medical; ATTEND Family Medicine
DX: J18.1 Lobar pneumonia, unspecified organism (principal); F17.210 Nicotine dependence, cigarettes, uncomplicated; Z79.82 Long term (current) use of aspirin; R79.89 Other specified abnormal findings of blood chemistry; Z79.899 Other long term (current) drug therapy; Z88.8 Allergy status to other drugs, medicaments and biological substances; Z86.69 Personal history of other diseases of the nervous system and sense organs; Z98.49 Cataract extraction status, unspecified eye
CPT/HCPCS: 36415; 71046; 80048; 85025; 86140; A9270-GY; J0456; J0696; J1650; J7050